=== PATIENT | male | born 1995 | race Caucasian/White ===

== ENCOUNTER → 2017-10-23 | Outpatient (CLI) | payer BC ==
[~2017-10-23] MED LIST: LIS50 PO
--- NOTE | 2017-10-23 13:00 | RADIOLOGY IMAGING REPORT ---
[place] [facility] [place] NAME: Denis Belcher : 1995 MR: [id number] V: [id number] EXAM DATE: ORDERING PHYSICIAN: YAA PINEDA TECHNOLOGIST: Location: [facility] Patient: Denis Belcher : 1995 Visit/Account:[id number] Date of Sevice: 10/23/2017 Exam type: CHEST PA AND LAT History: Cough Comparison: None. Findings: The lungs are free of acute effusions, infiltrates or edema. There is no evidence of a pneumothorax or pneumomediastinum. Cardiac silhouette is normal in size. The trachea is midline. IMPRESSION: 1. No acute cardiopulmonary process is seen Report Dictated By: Trinh Ariza MD at 10/23/2017 12:54 PM Report E-Signed By: Trinh Ariza MD at 10/23/2017 12:57 PM WSN:[id number]
== END ==
LOC: RAD 12:25
PROVIDERS: ATTEND Family Medicine
DX: R05 Cough (principal)
CPT/HCPCS: 71046

== ENCOUNTER 2017-12-07 15:48 | Day surgery (SDC) | payer BC ==
--- NOTE | 2017-12-07 15:52 | ER Report ---
History and Physical Time Seen By MD: 15:52 HPI/ROS 21-year-old otherwise healthy male presents to the emergency department with approximately 12 hours of right lower quadrant pain, anorexia, and nausea. The pain started in his by lateral lower quadrants, but then localized early this morning to the right side. No fever chills. Last ate last night. No urinary symptoms. No trauma. Allergies: Coded Allergies: No Known Drug Allergies (Unverified , 01/14/17) Home Meds Reported Medications Hydralazine Hcl (HYDRALAZINE HCL) 25 Mg Tablet, 25 MG PO QDAY, TAB 12/07/17 Lisdexamfetamine Dimesylate (Vyvanse) 40 Mg Tab.chew 12/07/17 Discontinued Reported Medications Lisdexamfetamine Dimesylate (VYVANSE) 50 Mg Capsule, 50 MG PO QDAY, CAPSULE 01/14/17 Hx Substance Use Disorder: No Hx Alcohol Use: Yes (OCCATIONAL) Constitutional Vital Sign - Last 24 Hours 12/07/17 16:04 Temp 98.8 Pulse 93 Resp 16 B/P (MAP) 122/74 Pulse Ox 100 O2 Delivery Room Air Physical Exam General Appearance: The patient is alert, has no immediate need for airway protection and no current signs of toxicity. Eyes: Pupils equal and round no injection. Respiratory: Chest is non tender, lungs are clear to auscultation. Cardiac: regular rate and rhythm Gastrointestinal: Abdomen is soft with RLQ TTP, no masses, bowel sounds normal.. Extremities have full range of motion and are non tender. Skin: No rashes or lesions. DIFFERENTIAL DIAGNOSIS: After history and physical exam differential diagnosis was considered for abdominal pain including but not limited to appendicitis, cholecystitis, gastritis and urinary tract infection. Medical Decision Making Data Points Result Diagram: 12/07/17 1601 12/07/17 1601 Laboratory Hematology Test 12/07/17 15:54 12/07/17 16:01 Urine Color Yellow Urine Clarity Clear Urine pH 7.0 pH (4.8-9.5) Urine Specific [place] 1.011 Urine Protein Negative mg/dL (NEGATIVE) Urine Glucose (UA) Negative mg/dL (NEGATIVE) Urine Ketones Negative mg/dL (NEGATIVE) Urine Blood Negative (NEGATIVE) Urine Nitrite Negative (NEGATIVE) Urine Bilirubin Negative (NEGATIVE) Urine Urobilinogen Negative mg/dL (0.2-1.9) Urine Leukocyte Esterase Negative (NEGATIVE) Urine RBC <1 /HPF (0-2/HPF) Urine WBC <1 /HPF (0-5/HPF) Urine Squamous Epithelial Cells None /LPF (</=FEW) Urine Bacteria Negative /HPF (NONE-FEW) Urine Mucus None /HPF (NONE-FEW) Red Blood Count 5.45 M/uL (4.00-5.60) Mean Corpuscular Volume 83.5 fL (80.0-96.0) Mean Corpuscular Hemoglobin 28.8 pg (26.0-33.0) Mean Corpuscular Hemoglobin Concent 34.5 g/dL (32.0-36.0) Red Cell Distribution Width 12.9 % (11.5-14.5) Mean Platelet Volume 7.9 fL (7.2-11.1) Neutrophils (%) (Auto) 73.6 % (39.4-72.5) Lymphocytes (%) (Auto) 18.7 % (17.6-49.6) Monocytes (%) (Auto) 7.1 % (4.1-12.4) Eosinophils (%) (Auto) 0.3 % (0.4-6.7) Basophils (%) (Auto) 0.3 % (0.3-1.4) Nucleated RBC Relative Count (auto) 0.0 /100WBC Neutrophils # (Auto) 8.5 K/uL (2.0-7.4) Lymphocytes # (Auto) 2.2 K/uL (1.3-3.6) Monocytes # (Auto) 0.8 K/uL (0.3-1.0) Eosinophils # (Auto) 0.0 K/uL (0.0-0.5) Basophils # (Auto) 0.0 K/uL (0.0-0.1) Nucleated RBC Absolute Count (auto) 0.00 K/uL Sodium Level 141 mmol/L (137-145) Potassium Level 3.2 mmol/L (3.5-5.0) Chloride Level 102 mmol/L (98-107) Carbon Dioxide Level 27 mmol/L (22-30) Blood Urea Nitrogen 9 mg/dl (9-21) Creatinine 1.00 mg/dl (0.66-1.25) Glomerular Filtration Rate Calc > 60.0 Random Glucose 98 mg/dl (75-110) Calcium Level 9.4 mg/dl (8.4-10.2) Total Bilirubin 1.5 mg/dl (0.2-1.3) Aspartate Amino Transf (AST/SGOT) 33 U/L (0-35) Alanine Aminotransferase (ALT/SGPT) 30 U/L (0-56) Alkaline Phosphatase 54 U/L (0-126) Total Protein 7.5 g/dl (6.3-8.2) Albumin 4.4 g/dl (3.5-5.0) Chemistry Test 12/07/17 15:54 12/07/17 16:01 Urine Color Yellow Urine Clarity Clear Urine pH 7.0 pH (4.8-9.5) Urine Specific [place] 1.011 Urine Protein Negative mg/dL (NEGATIVE) Urine Glucose (UA) Negative mg/dL (NEGATIVE) Urine Ketones Negative mg/dL (NEGATIVE) Urine Blood Negative (NEGATIVE) Urine Nitrite Negative (NEGATIVE) Urine Bilirubin Negative (NEGATIVE) Urine Urobilinogen Negative mg/dL (0.2-1.9) Urine Leukocyte Esterase Negative (NEGATIVE) Urine RBC <1 /HPF (0-2/HPF) Urine WBC <1 /HPF (0-5/HPF) Urine Squamous Epithelial Cells None /LPF (</=FEW) Urine Bacteria Negative /HPF (NONE-FEW) Urine Mucus None /HPF (NONE-FEW) White Blood Count 11.5 k/uL (4.5-11.0) Red Blood Count 5.45 M/uL (4.00-5.60) Hemoglobin 15.7 g/dL (14.0-18.0) Hematocrit 45.5 % (42.0-52.0) Mean Corpuscular Volume 83.5 fL (80.0-96.0) Mean Corpuscular Hemoglobin 28.8 pg (26.0-33.0) Mean Corpuscular Hemoglobin Concent 34.5 g/dL (32.0-36.0) Red Cell Distribution Width 12.9 % (11.5-14.5) Platelet Count 253 K/uL (150-450) Mean Platelet Volume 7.9 fL (7.2-11.1) Neutrophils (%) (Auto) 73.6 % (39.4-72.5) Lymphocytes (%) (Auto) 18.7 % (17.6-49.6) Monocytes (%) (Auto) 7.1 % (4.1-12.4) Eosinophils (%) (Auto) 0.3 % (0.4-6.7) Basophils (%) (Auto) 0.3 % (0.3-1.4) Nucleated RBC Relative Count (auto) 0.0 /100WBC Neutrophils # (Auto) 8.5 K/uL (2.0-7.4) Lymphocytes # (Auto) 2.2 K/uL (1.3-3.6) Monocytes # (Auto) 0.8 K/uL (0.3-1.0) Eosinophils # (Auto) 0.0 K/uL (0.0-0.5) Basophils # (Auto) 0.0 K/uL (0.0-0.1) Nucleated RBC Absolute Count (auto) 0.00 K/uL Glomerular Filtration Rate Calc > 60.0 Calcium Level 9.4 mg/dl (8.4-10.2) Total Bilirubin 1.5 mg/dl (0.2-1.3) Aspartate Amino Transf (AST/SGOT) 33 U/L (0-35) Alanine Aminotransferase (ALT/SGPT) 30 U/L (0-56) Alkaline Phosphatase 54 U/L (0-126) Total Protein 7.5 g/dl (6.3-8.2) Albumin 4.4 g/dl (3.5-5.0) Urinalysis Test 12/07/17 15:54 Urine Color Yellow Urine Clarity Clear Urine pH 7.0 pH (4.8-9.5) Urine Specific [place] 1.011 Urine Protein Negative mg/dL (NEGATIVE) Urine Glucose (UA) Negative mg/dL (NEGATIVE) Urine Ketones Negative mg/dL (NEGATIVE) Urine Blood Negative (NEGATIVE) Urine Nitrite Negative (NEGATIVE) Urine Bilirubin Negative (NEGATIVE) Urine Urobilinogen Negative mg/dL (0.2-1.9) Urine Leukocyte Esterase Negative (NEGATIVE) Urine RBC <1 /HPF (0-2/HPF) Urine WBC <1 /HPF (0-5/HPF) Urine Squamous Epithelial Cells None /LPF (</=FEW) Urine Bacteria Negative /HPF (NONE-FEW) Urine Mucus None /HPF (NONE-FEW) EKG/Imaging Imaging Results: CT scan of the abdomen/pelvis was obtained. The results of the study are acute appendicitis. The study was read by the radiologist. I viewed the images myself on the PACS system. ED Course/Re-evaluation ED Course Otherwise healthy 21-year-old male with right lower quadrant pain that started as bilateral lower quadrant pain last night and localized early this morning. CT scan c/w appendicitis. NPO, abx give. Dr. Barlow will take to the OR Decision to Disposition Date: Dec 07, 2017 Decision to Disposition Time: 18:02 Depart Departure Latest Vital Signs Vital Signs Date Time Temp Pulse Resp B/P (MAP) Pulse Ox O2 Delivery O2 Flow Rate FiO2 12/07/17 16:04 98.8 93 16 122/74 100 Room Air Impression: Primary Impression: Appendicitis, acute Condition: Improved Disposition: ADMIT FROM ER TO OR Problem Qualifiers Primary Impression: Appendicitis, acute Acute appendicitis type: with localized peritonitis Appendicitis gangrene presence: unspecified whether gangrene present Appendicitis perforation presence: without perforation Appendicitis abscess presence: without abscess Qualified Codes: K35.30 - Acute appendicitis with localized peritonitis, without perforation or gangrene PHIL CHURCH MD Dec 07, 2017 15:52
[2017-12-07] MEDS ORDERED: NS(*) 0.9% 1000 ML BAG 1,000 ML IV ONE (15:55)
[2017-12-07 16:10] LABS: PLATELET COUNT, AUTOMATED 253 K/uL (150-450)
[2017-12-07] MEDS ORDERED: LISD40TA (16:11)
[2017-12-07] MEDS ORDERED: HYDR25TA66 PO (16:11)
[2017-12-07] MEDS ORDERED: ONDANSETRON 4 MG/2 ML VIAL IVP ONE (16:55)
[2017-12-07] MEDS ORDERED: MORPHINE 4 MG/ML SDV IVP ONE ×2 (16:55→18:05)
[2017-12-07] MEDS ORDERED: IOPAMIDOL 76% 75 ML INFUS BTL 75 ML ONE (17:28)
--- NOTE | 2017-12-07 17:56 | RADIOLOGY IMAGING REPORT ---
FACILITY: [facility] PATIENT NAME: Denis Belcher : 1995 MR: [id number] V: [id number] EXAM DATE: ORDERING PHYSICIAN: PHIL CHURCH TECHNOLOGIST: Location: [facility] [place] Patient: Denis Belcher : 1995 Visit/Account:[id number] Date of Sevice: 12/07/2017 EXAMINATION: CT abdomen and pelvis with IV contrast HISTORY: Right lower quadrant pain. TECHNIQUE: Axial CT images of the abdomen and pelvis were obtained with IV contrast, with coronal a nd sagittal 2D reconstructed images. One of the following dose optimization techniques was utilized in the performance of this exam: Autom ated exposure control; adjustment of the mA and/or kV according to the patient's size; or use of an i terative reconstruction technique. Specific details can be referenced in the facility's radiology C T exam operational policy. Contrast: 75 mL of IV Isovue-370. COMPARISON: None. FINDINGS: Liver: Negative. Gallbladder and bile ducts: Negative. Spleen: Negative. Pancreas: Negative. Adrenal glands: Negative. Kidneys: Negative. No hydronephrosis or urinary calculi. Bowel and peritoneum: Exam is positive for acute appendicitis. The appendix is dilated up to 9 mm, w ith wall thickening and enhancement and mild periappendiceal stranding. There is a small calcified ap pendicolith along the proximal appendiceal lumen. No CT evidence of perforation or abscess formation. Remainder of the small bowel and colon are normal in caliber and unremarkable by CT. Trace amount of free fluid in the pelvis. No free intraperitoneal air. Pelvic structures: Negative. Lymph node assessment: Negative. Vessels: Negative. Musculoskeletal: Negative. Body wall: Negative. Lung bases: Negative. IMPRESSION: 1. Acute appendicitis. No CT evidence of perforation or abscess formation. 2. Trace amount of free fluid in the pelvis. 3. No other acute intra-abdominal findings. Findings were discussed with PHIL CHURCH at 12/07/2017 5:48 PM. Report Dictated By: Tio Villanueva MD at 12/07/2017 5:45 PM Report E-Signed By: Tio Villanueva MD at 12/07/2017 5:52 PM WSN:[id number]
[2017-12-07] MEDS ORDERED: FAMOTIDINE(*) 20MG/50ML PREMIX 50 ML IVPB ONE (18:05)
[2017-12-07] MEDS ORDERED: PIPERACILLIN/TAZO*3.375GM VIAL 3.375 GM in NS(*) 0.9% 100 ML ADDVANT BAG 100 ML IVPB ONE (18:05)
[2017-12-07] MEDS ORDERED: NORMOSOL R SOLN(*) 1000 ML BAG 1,000 ML IV ONE (18:05)
[2017-12-07] MEDS ORDERED: LIDOCAINE MPF 1% 5 ML VIAL ONE (18:37)
[2017-12-07] MEDS ORDERED: SUGAMMADEX SOD 200 MG/2 ML SDV ONE (18:37)
[2017-12-07] MEDS ORDERED: ONDANSETRON 4 MG/2 ML VIAL ONE (18:37)
[2017-12-07] MEDS ORDERED: DEXAMETHASONE SOD 4 MG/ML VIAL ONE (18:37)
[2017-12-07] MEDS ORDERED: PROPOFOL EMUL(*) 10MG/ML 20 ML 20 ML ONE (18:37)
[2017-12-07] MEDS ORDERED: ROCURONIUM BROM 10 MG/ML 10 ML ONE (18:37)
[2017-12-07] MEDS ORDERED: fentaNYL CITR 250 MCG/5 ML AMP ONE (18:39)
--- NOTE | 2017-12-07 18:40 | Gen Surgery History & Physical ---
History of Present Illness Chief Complaint RLQ abdominal pain History of Present Illness 21yo male presents to the ER by POV with 1 day h/o lower abdominal pain. Started 24 hours ago in bilateral lower quadrants, woke him at 5 this morning m ore in RLQ and worse but he was able to go back to sleep but progressively worsened throughout the day. Has had chills but no fevers. Anorexic today. No N/V. No diarrhea but some constipation. CT c/w early appendicitis. WBC 11.5K. History Problems: (1) H/O nasal septoplasty Status: Chronic (2) [place] teeth extracted Status: Chronic (3) History of tonsillectomy and adenoidectomy Status: Chronic Home Meds Reported Medications Hydralazine Hcl (HYDRALAZINE HCL) 25 Mg Tablet, 25 MG PO QDAY, TAB 12/07/17 Lisdexamfetamine Dimesylate (Vyvanse) 40 Mg Tab.chew 12/07/17 Discontinued Reported Medications Lisdexamfetamine Dimesylate (VYVANSE) 50 Mg Capsule, 50 MG PO QDAY, CAPSULE 01/14/17 Allergies: Coded Allergies: No Known Drug Allergies (Unverified , 01/14/17) Review of Systems All Systems Reviewed/Normal: Yes, Except as Noted Constitutional: Chills Gastrointestinal: Constipation, Abdominal Pain Exam General Appearance: Alert, Awake, No Acute Distress, Afebrile Neuro: No Gross deficits Eyes: PERRLA GI: Other (Soft, RLQ TTP with rebound) Extremities: Warm, Perfused Psych: Alert & Oriented X3, Appropriate Mood & Affect Medical Decision Making Data Points Result Diagram: 12/07/17 1601 12/07/17 1601 Assessment and Plan Problems: (1) Appendicitis, acute Status: Acute Assessment & Plan: 12/07/17: Admit, NPO, IV fluids, IV abx. To OR this evening for lap appy. I have explained the diagnosis and treatment, including surgery, to the patient in great detail along with alternatives, risks, and expected recovery. Pt seems to understand this discussion and his questions have been answered. Pt would like to proceed with this plan, including lap appy. Condition Stable. Time Spent: < 30 min Venous Thromboembolism VTE Risk Physician Assess for VTE Risk: Yes Patient's VTE Risk: Low VTE Diagnostic Test 2 Days Prior to Admit: No Antithrombotics Is Pt On Any Antithrombotics?: No Problem Qualifiers (1) Appendicitis, acute: Acute appendicitis type: with localized peritonitis Appendicitis gangrene presence: unspecified whether gangrene present Appendicitis perforation presence: without perforation Appendicitis abscess presence: without abscess Qualified Codes: K35.30 - Acute appendicitis with localized peritonitis, without perforation or gangrene NEMESIO MAYORGA MD Dec 07, 2017 18:40
[2017-12-07] MEDS ORDERED: KETAMINE HCL-NS 50 MG/5 ML SYR ONE (18:43)
[2017-12-07] MEDS ORDERED: ROPIVACAINE 0.5% 20 ML VIAL ONE (18:52)
[2017-12-07] MEDS ORDERED: MIDAZOLAM 2 MG/2 ML VIAL ONE (18:59)
[2017-12-07] MEDS ORDERED: OXYC-854 PO (20:13)
[2017-12-07] MEDS ORDERED: DOCU-416 PO (20:13)
--- NOTE | 2017-12-07 20:15 | Short(Outpt) Discharge Summary ---
Discharge Summary Reason for Hosp/Final Diag: (1) Appendicitis, acute Status: Acute Hospital Course & Plan: 12/07/17: Admit, NPO, IV fluids, IV abx. To OR this evening for lap appy. I have explained the diagnosis and treatment, including surgery, to the patient in great detail along with alternatives, risks, and expected recovery. Pt seems to understand this discussion and his questions have been answered. Pt would like to proceed with this plan, including lap appy. 12/07/17: Lap appy completed without problems. Early appendicitis, inflamed but without gangrene or perforation/abscess. Will d/c to home this evening. Departure Discharge to: Home, Self Care Discharge Instructions Home Meds Active Scripts Docusate Sodium (COLACE) 100 Mg Capsule, 1 CAP PO BID, #30 CAP 0 Refills TAKE WITH A FULL GLASS OF WATER Prov:NEMESIO MAYORGA MD 12/07/17 Oxycodone Hcl/Acet 5/325 Mg (ENDOCET 5-325 TABLET) 1 Each Tablet, 1-2 TAB PO Q4H PRN for PAIN, #20 TAB 0 Refills Prov:NEMESIO MAYORGA MD 12/07/17 Reported Medications Hydralazine Hcl (HYDRALAZINE HCL) 25 Mg Tablet, 25 MG PO QDAY, TAB 12/07/17 Lisdexamfetamine Dimesylate (Vyvanse) 40 Mg Tab.chew 12/07/17 Discontinued Reported Medications Lisdexamfetamine Dimesylate (VYVANSE) 50 Mg Capsule, 50 MG PO QDAY, CAPSULE 01/14/17 Follow up Referrals: General Surgery - 12/19/17 @ Surgery, General with NEMESIO MAYORGA MD You have a follow up appointment scheduled with Dr. Mayorga on 12/19/17, at 2:30pm. Diet: Regular Activity: As Tolerated Special Instructions: You may remove the white surgical dressings on 12/09/17, then you can shower. After showering, leave the incisions open to air but leave the steristrips in place until they fall off on their own. Do not immerse the incisions for 2 weeks. Problem Qualifiers (1) Appendicitis, acute: Acute appendicitis type: with localized peritonitis Appendicitis gangrene presence: unspecified whether gangrene present Appendicitis perforation presence: without perforation Appendicitis abscess presence: without abscess Qualified Codes: K35.30 - Acute appendicitis with localized peritonitis, without perforation or gangrene NEMESIO MAYORGA MD Dec 07, 2017 20:15
[2017-12-07] MEDS ORDERED: oxyCODONE/ACETAMIN 5/325MG TH 2 TAB/BOTTLE PO ONE ×2 (20:20)
--- NOTE | 2017-12-07 20:21 | Post Operative Progress Note ---
Post Operative Progress Note Date: Dec 07, 2017 Time: 20:17 Surgeon: Gabe Dictation number: [id number] Anesthesia: GETA by Dr. Morales Pre-Op Diagnosis: Acute appendicitis Post-Op Diagnosis: OPAL Findings: Early appendicitis Procedure(s): Lap appy Specimen Removed:(May be N/A): Appendix Complications: None Fluids: See anesthesia record Estimated Blood Loss: Minimal Date OP Note Dictated: Dec 07, 2017 Time OP Note Dictated: 20:17 NEMESIO MAYORGA MD Dec 07, 2017 20:21
[2017-12-07 21:17] VITALS: BP 116/68
[2017-12-07 21:19] VITALS: BP 119/58
--- NOTE | 2017-12-08 01:05 | OPERATIVE REPORT 1 ---
EVENT DATE: December 07, 2017 SURGEON: Jaime Bernal MD ANESTHESIOLOGIST: David Morales MD ANESTHESIA: General endotracheal anesthesia. PREOPERATIVE DIAGNOSIS Acute appendicitis. POSTOPERATIVE DIAGNOSIS Acute appendicitis. PROCEDURE PERFORMED Laparoscopic appendectomy. ESTIMATED BLOOD LOSS Minimal. COMPLICATIONS None. CONDITION Stable. FINDINGS The distal half of this patient's appendix appeared grossly inflamed, but without purulence, gangrene, or perforation, and there was no abscess. INDICATIONS This is a 21-year-old gentleman who presented to the emergency room with a one- day history of right lower quadrant abdominal pain and a CT and white count and exam consistent with acute appendicitis. He was consented for laparoscopic appendectomy. DESCRIPTION OF PROCEDURE The patient was brought to the operating room and placed supine on the operating table. General endotracheal anesthesia was administered, and his abdomen was prepped and draped in a sterile fashion. Time-out was completed, and I injected the infraumbilical skin with 0.5% ropivacaine plain and made a curvilinear [id number] incision in the infraumbilical rim. I then dissected down through the dermis and into the subcutaneous fat. I then identified the midline fascia and made a vertical incision in the midline fascia, and then I bluntly entered the peritoneal cavity with my finger. I placed two interrupted 0 Vicryl sutures transversely through the vertical fascial defect and inserted a 12 mm Glenna-type port through this wound and secured it in place with sutures. I insufflated the abdomen to a pressure of 15 mmHg and inserted a 5 mm, 30-degree angled scope through this port. Gross inspection of the abdominal cavity failed to reveal any obvious evidence of gross pathology or entry-related injuries. Next, under direct visualization I placed a 5 mm port to the suprapubic midline and a 5 mm port in the left lower quadrant. The patient was placed in Trendelenburg and planed toward his left to move the viscera from the right lower quadrant, and I used a grasper and grasped the appendix, and the distal half of the appendix appeared inflamed. I used a harmonic scalpel to divide the mesoappendix all the way up to the base of the appendix, and then divided the base of the appendix flush with the cecum with an Endo MARLEY stapler at a blue load. The appendix was placed in a surgical specimen retrieval bag, removed from the abdomen through the umbilical port site. I irrigated and dried the right lower quadrant, and there were a few stray vivienne that I suctioned out, and there was a little bleeding from the lateral attachments to the colon, which I controlled easily with the harmonic scalpel. I made sure I had removed all the irrigation fluid. I inspected the staple line, which was flush at the cecum, and there was no bleeding, and it did not interfere with the ileocecal valve. I suctioned some fluid out from the pelvis. I then removed the 5 mm ports under direct visualization and inspected the port sites for bleeding, and there was none. I removed the camera, desufflated the abdomen, removed the umbilical port, and then closed the fascia with another [id number] 0 Vicryl suture and tied all three of these down with good reapproximation of the fascial edges and no remaining fascial defect. I then closed the skin at each port site with 4-0 Monocryl subcuticular sutures. The skin was cleaned and dried, and Steri-Strips were applied followed by sterile surgical dressings. Patient was awakened, extubated in the operating room, and transported to the recovery room in stable condition, having tolerated the procedure without any apparent problems. JOAQUIN
== END 2017-12-07 21:10 | disposition home or self-care (01) ==
LOC: ER 15:55 → OR 18:20
PROVIDERS: ATTEND Surgery
DX: K35.30 Acute appendicitis with localized peritonitis, without perforation or gangrene (principal)
CPT/HCPCS: 44970; 74177; 81001; 85025; 88304; 96361; 96365; 96375; 96376; 99284; J1100; J2001; J2250; J2270; J2405; J2543; J2704; J2795; J3010; J3490; J7030; J7050; Q9967; 82040; 82247; 82310; 82374; 82435; 82565; 82947; 84075; 84132; 84155; 84295; 84450; 84460; 84520

== ENCOUNTER → 2018-03-25 | Outpatient (CLI) | payer BC ==
[~2018-03-25] MED LIST changes: +DOCU-416 PO; +HYDR10TA20 PO; +HYDR25TA66 PO; +LISD30TA; +LISD40TA; +MULT1CAP59 PO; +OXYC-854 PO
--- NOTE | 2018-03-25 11:52 | RADIOLOGY IMAGING REPORT ---
[place] [facility] [place] NAME: Denis Belcher : 1995 MR: [id number] V: [id number] EXAM DATE: ORDERING PHYSICIAN: YAA PINEDA TECHNOLOGIST: Location: [facility] [place] Patient: Denis Belcher : 1995 Visit/Account:[id number] Date of Sevice: 03/25/2018 CT neck with contrast Comparison: None Additional pertinent history: Fullness on left side of neck TECHNIQUE: Multiple axial images were obtained from the mid portion of the brain through the superio r mediastinum with IV contrast. Coronal and sagittal reformatted images were obtained off the axial source data. One of the following dose optimization techniques was utilized in the performance of t his exam: Automated exposure control; adjustment of the mA and/or kV according to the patient's size; or use of an iterative reconstruction technique. Specific details can be referenced in the [facility]'s radiology CT exam operational policy. CONTRAST: 75 mL of Isovue-370 FINDINGS: Visualized portions of the brain parenchyma:Negative Parotid glands/submandibular glands/thyroid: Negative Orbits: Negative Paranasal sinuses: Negative Parapharyngeal spaces: Negative Nasopharynx/oropharynx/hypopharynx: Negative Tonsillar pillars: Negative Oral tongue/tongue base: Negative True and false cords: Negative Lymph node assessment:Negative Surrounding soft tissues: Negative Vasculature: Negative Lung apices: Negative Osseous structures: Negative IMPRESSION: Normal CT of the neck with contrast. Report Dictated By: Yaa Chow MD at 03/25/2018 11:42 AM Report E-Signed By: Yaa Chow MD at 03/25/2018 11:47 AM WSN:[id number]
== END ==
LOC: CT 00:31
PROVIDERS: ATTEND Family Medicine
DX: R13.19 Other dysphagia (principal)
CPT/HCPCS: 70491

== ENCOUNTER → 2018-06-02 | Outpatient (CLI) | payer BC ==
[~2018-06-02] MED LIST changes: +BARIUM SULFATE 176 GM BTL PO ONE; +BARIUM SULFATE 340 GM POWD ONE; +IBUP-136 PO; +OMEP40CA48 PO; +PANT40TA65 PO
--- NOTE | 2018-06-02 17:10 | RADIOLOGY IMAGING REPORT ---
[place] [facility] [place] Denis Belcher : 1995 MR: [id number] V: [id number] EXAM DATE: [id number] ORDERING PHYSICIAN: RUI DOMINGUEZ TECHNOLOGIST: Location: [facility] Patient: Denis Belcher : 1995 Visit/Account:[id number] Date of Sevice: 06/02/2018 Exam type: ESOPHAGRAM History: dysphagia, suspect GERD Comparison: None. Findings: Double contrast esophagram was performed with thick and thin barium and air contrast there was mild m ucosal irregularity seen in the cervical esophagus. Moderate gastroesophageal reflux was observed. No significant narrowing of the esophagus is identified. The dose area product was 437.04 micro-Whiting per meter squared IMPRESSION: 1. Moderate gastroesophageal reflux was observed. No significant narrowing of the esophagus was kenroy ntified however there was mild mucosal irregularity seen in the cervical esophagus Report Dictated By: Trinh Ariza MD at 06/02/2018 5:02 PM Report E-Signed By: Trinh Ariza MD at 06/02/2018 5:05 PM WSN:[email or web address]
== END ==
LOC: RAD 01:16
PROVIDERS: ATTEND Otolaryngology
DX: K21.9 Gastro-esophageal reflux disease without esophagitis (principal); R93.3 Abnormal findings on diagnostic imaging of other parts of digestive tract
CPT/HCPCS: 74220